=== PATIENT | female | born 1950 | race Caucasian/White ===

== ENCOUNTER → 2016-08-26 | Outpatient (CLI) | payer MEDICARE ==
[~2016-08-26] MED LIST: ATIVAN1 MG PO; AUGMENTIN 875875 MG PO; BACTRIM DS 8001 TA1 PO; CARAFATE1 G1 PO; CARAFATE1 GM/10 ML PO; CELEXA20 MG PO; CELEXA40 MG PO; CYCLOBENZAPRINE10 MG PO; Carafate1 GM/10 ML PO; EFFEXOR XR; EFFEXOR XR150 M1 PO; EFFEXOR XR75 M1 PO; EFFEXOR75 MG; EFFEXOR75 MG PO; FLEXERIL10 MG PO; GAVISCON 80 MG-1 CT1 PO; HYDROCODONE BIT1 T11 PO; IBU800 MG PO; IRON TABLETS325 MG PO; K-DUR 2020 MEQ PO; K-DUR 20MEQ20 MEQ PO; KEFLEX500 MG PO; KLOR-CON 1010 ME1 PO; LANSOPRAZOLE; LISINOPRIL; LISINOPRIL10 MG PO; LISINOPRIL5 MG PO; MEDROL DOSEPAK4 MG PO; MELOXICAM7.5 MG PO; NORCO 5-325 TA1 EACH PO; OLANZAPINE; OMEPRAZOLE40 MG PO; ONE DAILY WOME1 EACH PO; PRAVACHOL20 MG PO; PRAVASTATIN 20 MG; PREDNISONE10 MG PO; PRILOSEC10 MG PO; PRILOSEC20 M2 PO; PRILOSEC20 MG PO; PROTONIX40 MG PO; PROZAC20 MG PO; VICODIN 5-3001 EACH PO; VICODIN 5/500 505 MG PO; ZANAFLEX CAPSULE4 MG PO; ZITHROMAX Z PA250 MG PO; ZOCOR20 MG PO; ZOVIRAX800 MG PO; ZYPREXA10 MG PO; ZYPREXA15 M1 PO
[2016-08-26 10:26] LABS: HEMOGLOBIN 12.2 g/dl (12.0-16.0); LYMPH # 1.6 10*3/uL (1.3-4.4); LYMPH % 33.3 % (27.0-41.0); MEAN CELL VOLUME 92.4 fl (81.0-99.0); MEAN CORPUSCULAR HGB 28.9 pg (27.0-31.0); MEAN CORPUSCULAR HGB CONC 31.3 g/dl (33.0-37.0); MEAN PLATELET VOLUME 10.4 fl (9.6-12.3); MONO # 0.5 10*3/uL (0.1-1.0); MONO % 10.1 % (3.0-9.0); NEUT # 2.6 10*3/uL (2.3-7.9); PLATELET COUNT AUTOMATED 263 10*3/uL (130-400); RED BLOOD COUNT 4.22 10*6/uL (4.10-5.10); RED CELL DISTRI WIDTH 13.2 % (0-14.5); WHITE BLOOD COUNT 4.7 10*3/uL (4.8-10.8)
[2016-08-26 10:56] LABS: ALBUMIN 3.3 gm/dl (3.1-4.5); ALKALINE PHOSPHATASE 72 U/L (45-117); BILIRUBIN, TOTAL 0.3 mg/dl (0.2-1.0); BUN 12 mg/dl (7-24); CARBON DIOXIDE 26 mmol/L (21-32); CHLORIDE 108 mmol/L (98-107); CHOLESTEROL 178 mg/dL (<200); EST GLOM FILT AFRICAN AMERICAN > 60 ml/min; GLUCOSE 88 mg/dL (65-99); HDL CHOLESTEROL 36 mg/dl (40-60); LDL CHOLESTEROL 91 mg/dL (9-159); POTASSIUM 3.7 mmol/L (3.5-5.1); SGOT/AST 25 IU/L (3-35); SGPT/ALT 26 U/L (12-78); SODIUM 143 mmol/L (136-145); TOTAL PROTEIN 6.6 gm/dL (6.4-8.2); TRIGLYCERIDES 256 mg/dl (<150); VLDL CHOLESTEROL 51 mg/dL (6-40)
== END | disposition home or self-care (01) ==
LOC: LAB 10:00
PROVIDERS: Internal Medicine
DX: E66.09 Other obesity due to excess calories (principal); E55.9 Vitamin D deficiency, unspecified; Z79.899 Other long term (current) drug therapy

== ENCOUNTER 2016-10-12 12:12 | Inpatient (IN) | payer MEDICARE ==
[~2016-10-12] VITALS: Ht 162.5 cm; Wt 70.5 kg
[2016-10-12 13:02] LABS: BASO % 0.1 % (0.0-1.0); HEMOGLOBIN 11.6 g/dl (12.0-16.0); IG # 0.1 10*3/uL (0.0-0.1); LYMPH # 1.6 10*3/uL (1.3-4.4); LYMPH % 12.3 % (27.0-41.0); MEAN CELL VOLUME 89.6 fl (81.0-99.0); MEAN CORPUSCULAR HGB 28.1 pg (27.0-31.0); MEAN CORPUSCULAR HGB CONC 31.4 g/dl (33.0-37.0); MONO # 0.6 10*3/uL (0.1-1.0); MONO % 4.4 % (3.0-9.0); NEUT # 10.7 10*3/uL (2.3-7.9); NEUT % 82.8 % (47.0-73.0); PLATELET COUNT AUTOMATED 243 10*3/uL (130-400); RED BLOOD COUNT 4.13 10*6/uL (4.10-5.10); RED CELL DISTRI WIDTH 13.2 % (0-14.5)
[2016-10-12 13:18] LABS: ALBUMIN 3.2 gm/dl (3.1-4.5); ALKALINE PHOSPHATASE 76 U/L (45-117); BILIRUBIN, TOTAL 0.5 mg/dl (0.2-1.0); BUN 13 mg/dl (7-24); C-REACTIVE PROTEIN 2.62 MG/DL (0-0.3); CARBON DIOXIDE 27 mmol/L (21-32); CHLORIDE 102 mmol/L (98-107); CKMB 1.2 ng/ml (0.5-3.6); CPK 29 U/L (26-192); EST GLOM FILT AFRICAN AMERICAN > 60 ml/min; GLUCOSE 96 mg/dL (65-99); POTASSIUM 3.5 mmol/L (3.5-5.1); SGOT/AST 30 IU/L (3-35); SGPT/ALT 36 U/L (12-78); SODIUM 139 mmol/L (136-145); TOTAL PROTEIN 6.5 gm/dL (6.4-8.2)
[2016-10-12 13:19] LABS: INTERNATIONAL NORM RATIO 1.1 (2.0-3.5); PROTHROMBIN TIME 11.3 SECONDS (9.0-12.4)
[2016-10-12 13:21] LABS: TROPONIN I < 0.015 ng/ml (<0.045)
[2016-10-12 13:35] VITALS: BP 103/67
[2016-10-12 14:10] LABS: BILIRUBIN NEGATIVE (NEGATIVE); BLOOD NEGATIVE (NEGATIVE); CLARITY CLOUDY (CLEAR); COLOR YELLOW (YELLOW); GLUCOSE NEGATIVE (NEGATIVE); KETONE NEGATIVE (NEGATIVE); LEUKO ESTERASE 3+ (NEGATIVE); NITRITE POSITIVE (NEGATIVE); PROTEIN NEGATIVE (NEGATIVE); SPECIFIC GRAVITY <= 1.005 (1.005-1.030)
[2016-10-12 14:29] LABS: BACTERIA 4+; EPITHELIAL CELLS 0-2; URINE REFLEX COMMENT YES (NO); WBC 41-50 wbc/hpf (0-5)
[2016-10-12] MEDS ORDERED: TRICOR48 MG PO (15:27)
[2016-10-12] MEDS ORDERED: ZYPREXA20 M1 PO (15:27)
[2016-10-12 16:00] VITALS: BP 118/70
[2016-10-12 18:27] LABS: CKMB 1.1 ng/ml (0.5-3.6)
[2016-10-12 20:00] VITALS: BP 94/70; BP 98/66
[2016-10-12 22:17] VITALS: BP 90/40
[2016-10-12 22:35] VITALS: BP 90/52
[2016-10-13 00:39] LABS: CKMB 1.1 ng/ml (0.5-3.6)
[2016-10-13 01:50] VITALS: BP 110/78
[2016-10-13 04:00] VITALS: BP 92/60
[2016-10-13 06:43] LABS: LYMPH # 1.3 10*3/uL (1.3-4.4); LYMPH % 25.7 % (27.0-41.0); MEAN CORPUSCULAR HGB 28.2 pg (27.0-31.0); MEAN CORPUSCULAR HGB CONC 30.1 g/dl (33.0-37.0); MEAN PLATELET VOLUME 10.9 fl (9.6-12.3); MONO # 0.4 10*3/uL (0.1-1.0); MONO % 7.7 % (3.0-9.0); NEUT # 3.4 10*3/uL (2.3-7.9); NEUT % 66.2 % (47.0-73.0); PLATELET COUNT AUTOMATED 211 10*3/uL (130-400); RED CELL DISTRI WIDTH 13.2 % (0-14.5); WHITE BLOOD COUNT 5.1 10*3/uL (4.8-10.8)
[2016-10-13 06:50] LABS: HEMATOCRIT 30.9 % (37.0-47.0); HEMOGLOBIN 9.3 g/dl (12.0-16.0); MEAN CELL VOLUME 93.6 fl (81.0-99.0)
[2016-10-13 06:58] LABS: CKMB 1.4 ng/ml (0.5-3.6)
[2016-10-13 07:12] LABS: BUN 7 mg/dl (7-24); CARBON DIOXIDE 26 mmol/L (21-32); CHLORIDE 110 mmol/L (98-107); CHOLESTEROL 117 mg/dL (<200); EST GLOM FILT AFRICAN AMERICAN > 60 ml/min; GLUCOSE 82 mg/dL (65-99); HDL CHOLESTEROL 39 mg/dl (40-60); LDL CHOLESTEROL 58 mg/dL (9-159); PHOSPHOROUS 2.7 mg/dL (2.5-4.9); POTASSIUM 3.4 mmol/L (3.5-5.1); SODIUM 142 mmol/L (136-145); TRIGLYCERIDES 100 mg/dl (<150); VLDL CHOLESTEROL 20 mg/dL (6-40)
[2016-10-13 07:13] LABS: HEMOGLOBIN A1c 5.4 % (4.8-5.6)
[2016-10-13 07:20] LABS: FREE T4 1.05 ng/dl (0.76-1.46)
[2016-10-13 07:34] LABS: FOLIC ACID 3.67 ng/mL (>5.38); VITAMIN D, 25-HYDROXY 37.4 ng/mL (30-100)
[2016-10-13 07:56] VITALS: BP 100/60
[2016-10-13 12:00] VITALS: BP 96/60
[2016-10-13 16:00] VITALS: BP 131/80
[2016-10-13 20:00] VITALS: BP 93/66
[2016-10-14] VITALS: BP 114/70
[2016-10-14 06:58] LABS: BUN 8 mg/dl (7-24); CARBON DIOXIDE 23 mmol/L (21-32); CHLORIDE 113 mmol/L (98-107); EST GLOM FILT AFRICAN AMERICAN > 60 ml/min; GLUCOSE 83 mg/dL (65-99); POTASSIUM 3.9 mmol/L (3.5-5.1); SODIUM 145 mmol/L (136-145)
[2016-10-14 07:29] LABS: HEMATOCRIT 29.3 % (37.0-47.0); HEMOGLOBIN 8.8 g/dl (12.0-16.0); LYMPH # 1.3 10*3/uL (1.3-4.4); LYMPH % 27.2 % (27.0-41.0); MEAN CELL VOLUME 92.1 fl (81.0-99.0); MEAN CORPUSCULAR HGB 27.7 pg (27.0-31.0); MEAN PLATELET VOLUME 10.7 fl (9.6-12.3); MONO # 0.4 10*3/uL (0.1-1.0); MONO % 8.1 % (3.0-9.0); NEUT # 3.1 10*3/uL (2.3-7.9); NEUT % 64.3 % (47.0-73.0); PLATELET COUNT AUTOMATED 214 10*3/uL (130-400); RED BLOOD COUNT 3.18 10*6/uL (4.10-5.10); RED CELL DISTRI WIDTH 13.4 % (0-14.5); WHITE BLOOD COUNT 4.8 10*3/uL (4.8-10.8)
[2016-10-14 08:00] VITALS: BP 108/58
[2016-10-14] MEDS ORDERED: CIPRO500 MG PO (09:16)
== END 2016-10-14 10:55 | disposition home or self-care (01) | DRG 871 ==
LOC: ED 12:12 → EDHOLD 14:35 → 4E 14:35
PROVIDERS: Emergency Medicine; Hospitalist; Student in an Organized Health Care Education/Training Program
DX: A41.9 Sepsis, unspecified organism (principal); J96.00 Acute respiratory failure, unspecified whether with hypoxia or hypercapnia; F33.9 Major depressive disorder, recurrent, unspecified; N39.0 Urinary tract infection, site not specified; R21 Rash and other nonspecific skin eruption; K21.9 Gastro-esophageal reflux disease without esophagitis; F41.9 Anxiety disorder, unspecified; D53.9 Nutritional anemia, unspecified; K27.7 Chronic peptic ulcer, site unspecified, without hemorrhage or perforation; G40.909 Epilepsy, unspecified, not intractable, without status epilepticus; E53.8 Deficiency of other specified B group vitamins; E87.6 Hypokalemia; M54.12 Radiculopathy, cervical region; M19.90 Unspecified osteoarthritis, unspecified site; B96.20 Unspecified Escherichia coli [E. coli] as the cause of diseases classified elsewhere; Z16.29 Resistance to other single specified antibiotic; E66.9 Obesity, unspecified; Z68.26 Body mass index [BMI] 26.0-26.9, adult; Z88.1 Allergy status to other antibiotic agents; Z90.49 Acquired absence of other specified parts of digestive tract; Z98.51 Tubal ligation status; Z81.8 Family history of other mental and behavioral disorders; Z79.899 Other long term (current) drug therapy; R65.20 Severe sepsis without septic shock

== ENCOUNTER → 2017-01-26 | Outpatient (CLI) | payer MEDICARE ==
[~2017-01-26] MED LIST changes: +CIPRO500 MG PO; +TRICOR48 MG PO; +ZYPREXA20 M1 PO
[2017-01-26 11:49] LABS: BASO % 0.2 % (0.0-1.0); HEMATOCRIT 33.6 % (37.0-47.0); HEMOGLOBIN 10.3 g/dl (12.0-16.0); LYMPH # 0.9 10*3/uL (1.3-4.4); LYMPH % 18.8 % (27.0-41.0); MEAN CELL VOLUME 89.4 fl (81.0-99.0); MEAN CORPUSCULAR HGB 27.4 pg (27.0-31.0); MEAN CORPUSCULAR HGB CONC 30.7 g/dl (33.0-37.0); MEAN PLATELET VOLUME 9.8 fl (9.6-12.3); MONO # 0.5 10*3/uL (0.1-1.0); MONO % 9.4 % (3.0-9.0); NEUT # 3.4 10*3/uL (2.3-7.9); NEUT % 70.3 % (47.0-73.0); PLATELET COUNT AUTOMATED 371 10*3/uL (130-400); RED BLOOD COUNT 3.76 10*6/uL (4.10-5.10); RED CELL DISTRI WIDTH 14.6 % (0-14.5); WHITE BLOOD COUNT 4.8 10*3/uL (4.8-10.8)
[2017-01-26 12:09] LABS: ALKALINE PHOSPHATASE 80 U/L (45-117); BUN 10 mg/dl (7-24); CHLORIDE 106 mmol/L (98-107); CHOLESTEROL 175 mg/dL (<200); HDL CHOLESTEROL 41 mg/dl (40-60); LDL CHOLESTEROL 101 mg/dL (9-159); POTASSIUM 3.6 mmol/L (3.5-5.1); SGOT/AST 17 IU/L (3-35); SGPT/ALT 24 U/L (12-78); SODIUM 143 mmol/L (136-145); TOTAL PROTEIN 6.8 gm/dL (6.4-8.2); TRIGLYCERIDES 165 mg/dl (<150); VLDL CHOLESTEROL 33 mg/dL (6-40)
[2017-01-26 12:44] LABS: VITAMIN D, 25-HYDROXY 18.8 ng/mL (30-100)
== END | disposition home or self-care (01) ==
LOC: LAB 11:18
PROVIDERS: Internal Medicine
DX: E78.2 Mixed hyperlipidemia (principal); E55.9 Vitamin D deficiency, unspecified; E53.8 Deficiency of other specified B group vitamins